=== PATIENT | female | born 1970 | race Caucasian/White ===

== ENCOUNTER 2021-09-13 18:53 | Emergency (ER) | payer BC, OTHER ==
[2021-09-13] MEDS ORDERED: IBUPROFEN 400 MG TAB ONE (20:24)
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
[2021-09-13 23:17] VITALS: O2SAT 100
[2021-09-13 23:18] VITALS: BP 124/74; TEMP 97.6
== END 2021-09-13 21:16 | disposition home or self-care (01) ==
LOC: ER 18:53
DX: S39.012A Strain of muscle, fascia and tendon of lower back, initial encounter (principal); S39.011A Strain of muscle, fascia and tendon of abdomen, initial encounter; S39.013A Strain of muscle, fascia and tendon of pelvis, initial encounter; S29.012A Strain of muscle and tendon of back wall of thorax, initial encounter; V49.40XA Driver injured in collision with unspecified motor vehicles in traffic accident, initial encounter; Z88.0 Allergy status to penicillin; Z88.5 Allergy status to narcotic agent; E03.9 Hypothyroidism, unspecified
CPT/HCPCS: 99284